=== PATIENT | male | born 1950 | race Caucasian/White ===

== ENCOUNTER 2019-03-02 11:58 | Emergency (ER) | payer MEDICARE, BC ==
--- NOTE | 2019-03-02 12:32 | EDM.PDOC ---
ED HPI GENERAL MEDICAL PROBLEM - General Chief Complaint: Bite:Animal, Insect Stated Complaint: LEFT LEG STUNG BY YELLOW JACKETS Time Seen by Provider: 03/02/19 12:30 Source of Information: Reports: Patient History Limitations: Reports: No Limitations - History of Present Illness INITIAL COMMENTS - FREE TEXT/NARRATIVE: Ramin is a 68 year old male, presents to the ED today with redness to left leg since being stung by several yellow jackets yesterday, concerned because when he was stung 7 years ago he developed a cellulitis. No significant warmth, no fever, chills or systemic symptoms. Patient is diabetic, blood sugars controlled. Onset: Gradual Duration: Day(s): (2) - Related Data Allergies Allergy/AdvReac Type Severity Reaction Status Date / Time No Known Allergies Allergy Verified 03/02/19 12:15 Home Meds: Home Meds Dulaglutide [Trulicity] 1.5 mg SQ ASDIRECTED 03/02/19 [History] Insulin Degludec [Tresiba] 120 unit SQ DAILY 03/02/19 [History] Irbesartan [Avapro] 300 mg PO DAILY 03/02/19 [History] Lansoprazole [Prevacid] 30 mg PO DAILY 03/02/19 [History] Rosuvastatin Calcium 10 mg PO DAILY 03/02/19 [History] metFORMIN [Glucophage] 100 mg PO BIDMEALS 03/02/19 [History] Past Medical History Cardiovascular History: Reports: High Cholesterol, Hypertension Respiratory History: Reports: Other (See Below) Other Respiratory History: seasonal allergies Gastrointestinal History: Reports: GERD Endocrine/Metabolic History: Reports: Diabetes, Type II Oncologic (Cancer) History: Reports: Prostate - Past Surgical History GI Surgical History: Reports: Cholecystectomy Male Surgical History: Reports: Prostatectomy Musculoskeletal Surgical History: Reports: Arthroscopic Knee Social & Family History - Tobacco Use Smoking Status *Q: Never Smoker - Recreational Drug Use Recreational Drug Use: No ED ROS GENERAL - Review of Systems Review Of Systems: ROS reveals no pertinent complaints other than HPI. ED EXAM, ANIMAL BITE - Physical Exam Exam: See Below Exam Limited By: No Limitations General Appearance: Alert, WD/WN, No Apparent Distress Throat/Mouth: Normal Inspection Head: Atraumatic Neck: Normal Inspection, Supple, Non-Tender Respiratory/Chest: No Respiratory Distress Cardiovascular: Normal Peripheral Pulses, Regular Rate, Rhythm Back Exam: Normal Inspection, Full Range of Motion Extremities: Normal Inspection, Normal Range of Motion Neurological: Alert, Oriented, CN II-XII Intact Psychiatric: Normal Affect, Normal Mood Skin Exam: Other (scattered bites with surrounding erythema to left leg, no significant warmth, no abscess formation. ) Lymphatic: No Adenopathy Course - Vital Signs Last Recorded V/S: Last Vital Signs Temp 36.2 C 03/02/19 12:15 Pulse 95 03/02/19 12:15 Resp 13 03/02/19 12:15 BP 136/94 H 03/02/19 12:15 Pulse Ox 94 L 03/02/19 12:15 Ramin is a 68 year old diabetic male presents to the ED with left leg redness after being stung by multiple yellow jackets yesterday. Please refer to HPI and focused exam. Patient's exam consistent with local sting reaction, given his hx in light of his diabetic hx I am going to error on the side of caution and start him on Keflex for early cellulitis/prophylaxis. Patient agreeable, reasons to return discussed. Patient discharged in stable condition. Departure - Departure Time of Disposition: 13:00 Disposition: Home, Self-Care 01 Clinical Impression: Cellulitis Qualifiers: Site of cellulitis: extremity Site of cellulitis of extremity: lower extremity Laterality: left Qualified Code(s): L03.116 - Cellulitis of left lower limb Bee sting reaction Qualifiers: Encounter type: initial encounter Injury intent: accidental or unintentional Qualified Code(s): T63.441A - Toxic effect of venom of bees, accidental ( unintentional), initial encounter - Discharge Information Instructions: Cellulitis, Adult, [id number], Insect Bite, Adult, [id number] Referrals: PCP,None [Primary Care Provider] - Forms: ED Department Discharge Additional Instructions: Start Keflex today, take as directed. Benadryl and topical hydrocortisone cream as needed. Return with worsening symptoms.
== END 2019-03-02 12:47 | disposition home or self-care (01) ==
LOC: JP.ED 11:58
DX: T63.441A Toxic effect of venom of bees, accidental (unintentional), initial encounter (principal); L03.116 Cellulitis of left lower limb; I10 Essential (primary) hypertension; E11.9 Type 2 diabetes mellitus without complications; Z90.49 Acquired absence of other specified parts of digestive tract; Z79.4 Long term (current) use of insulin; Z79.899 Other long term (current) drug therapy
CPT/HCPCS: 99282; 99283

== ENCOUNTER 2022-03-13 18:54 | Emergency (ER) | payer MEDICARE, BC ==
[2022-03-13] MEDS ORDERED: methylPREDNISolone Sodium Succinate 125 MG/2 ML SDV IM ONE (19:24)
== END 2022-03-13 19:43 | disposition home or self-care (01) ==
LOC: JP.ED 18:54
DX: T63.441A Toxic effect of venom of bees, accidental (unintentional), initial encounter (principal); H60.12 Cellulitis of left external ear; L03.211 Cellulitis of face; E78.00 Pure hypercholesterolemia, unspecified; I10 Essential (primary) hypertension; E11.9 Type 2 diabetes mellitus without complications; K21.9 Gastro-esophageal reflux disease without esophagitis; Z79.899 Other long term (current) drug therapy; Z79.4 Long term (current) use of insulin
CPT/HCPCS: 96372; 99282; J2930